=== PATIENT | female | born 1990 | race Two or more races ===

== ENCOUNTER 2017-09-08 16:48 | Emergency (ER) | payer MEDICAID ==
[~2017-09-08] VITALS: Ht 162.6 cm; Wt 54.4 kg
[2017-09-08 17:39] LABS: APPEARANCE,URINE CLOUDY; BILIRUBIN, URINE NEGATIVE (NEGATIVE); COLOR,URINE PALE YELLOW; GLUCOSE, URINE (UA) NEGATIVE (NEGATIVE); KETONES,URINE NEGATIVE (NEGATIVE); LEUKOCYTE ESTERASE ,URINE 1+ (NEGATIVE); NITRITE,URINE POSITIVE (NEGATIVE); PH,URINE 7 (4.5-8.0); PROTEIN,URINE NEGATIVE (NEGATIVE); UROBILINOGEN,URINE NORMAL MG/DL (0.0-1.0)
[2017-09-08] MEDS ORDERED: LORazepam 1mg tab ORAL ONE (17:45)
[2017-09-08 18:01] LABS: BASOPHILS % (AUTO) 0.9 % (0.0-2.0); EOSINOPHILS % (AUTO) 1.8 % (0.0-3.0); HEMATOCRIT 39.7 % (37.0-47.0); HEMOGLOBIN 13.7 G/DL (12.0-16.0); LYMPHOCYTES % (AUTO) 35.5 % (20.0-45.0); MEAN CORPUSCULAR VOLUME 82 FL (80-99); MONOCYTES % (AUTO) 8.1 % (1.0-10.0); NEUTROPHILS % (AUTO) 53.7 % (45.0-75.0); PLATELET COUNT 290 K/UL (150-450); RED BLOOD COUNT 4.86 M/UL (4.20-5.40); RED CELL DISTRIBUTION WIDTH 12.1 % (11.6-14.8); WHITE BLOOD COUNT 11.5 K/UL (4.8-10.8)
[2017-09-08 18:05] LABS: ANION GAP 8 mmol/L (5-15); BLOOD UREA NITROGEN 13 mg/dL (7-18); CALCIUM 9.5 MG/DL (8.5-10.1); CARBON DIOXIDE 29 MMOL/L (21-32); CHLORIDE 100 MMOL/L (98-107); CREATININE 0.7 MG/DL (0.55-1.30); POTASSIUM 3.9 MMOL/L (3.5-5.1); SODIUM 137 MMOL/L (136-145)
[2017-09-08 18:10] LABS: ALANINE AMINOTRANSFERASE 18 U/L (12-78); ALBUMIN 4.2 G/DL (3.4-5.0); ALKALINE PHOSPHATASE 70 U/L (46-116); ASPARTATE AMINO TRANSFERASE 13 U/L (15-37); BILIRUBIN,TOTAL 0.3 MG/DL (0.2-1.0)
[2017-09-08] MEDS ORDERED: Isovue-300 100ml vial INJ PRN (19:00)
[2017-09-08 19:12] VITALS: BP 108/60
[2017-09-08] MEDS ORDERED: NITROFURANTOIN100 M2 ORAL (19:57)
[2017-09-08] MEDS ORDERED: TYLENOL EXTRA500 MG ORAL (19:57)
[2017-09-08 20:14] VITALS: BP 112/67
[2017-09-08 20:15] VITALS: BP 112/67
--- NOTE | 2017-09-08 20:51 | Emergency Room Report ---
History of Present Illness General Chief Complaint: Abdominal Pain Source: Patient Present Illness HPI The patient is a 27 old female presenting for abdominal pain. She states that she has had 3 days of right lower abdominal pain described as a 7 out of 10 sharp sensation. Pain is increased with movement. Does not radiate. She denies other symptoms including nausea, vomiting, fever, chills, back pain, dysuria, hematuria, vaginal discharge, decreased appetite Allergies: Coded Allergies: No Known Allergies (Unverified , 09/08/17) Patient History Past Medical History: see triage record Pertinent Family History: none Last Menstrual Period: Current Reviewed Nursing Documentation: PMH: Agreed; PSxH: Agreed Nursing Documentation-PMH Past Medical History: No Stated History Review of Systems All Other Systems: negative except mentioned in HPI Physical Exam Vital Signs Date Time Temp Pulse Resp B/P (MAP) Pulse Ox O2 Delivery O2 Flow Rate FiO2 09/08/17 17:11 98.0 89 17 99/58 98 Room Air 98.1 Sp02 EP Interpretation: reviewed, normal General Appearance: no apparent distress, alert, GCS 15, non-toxic Head: normocephalic, atraumatic Eyes: bilateral eye normal inspection, bilateral eye PERRL Respiratory: chest non-tender, lungs clear, normal breath sounds, speaking full sentences Cardiovascular #1: regular rate, rhythm, no edema Gastrointestinal: normal bowel sounds, soft, non-distended, no guarding, no rebound, tenderness - RLQ and suprapubic Musculoskeletal: back normal, gait/station normal, normal range of motion, non- tender Neurologic: alert, oriented x3, responsive, motor strength/tone normal, sensory intact, speech normal Skin: normal color, no rash, warm/dry, well hydrated Medical Decision Making PA Attestation Dr. Elkins is my supervising physician. Patient management was discussed with my supervising physician Diagnostic Impression: Primary Impression: UTI (urinary tract infection) Qualified Codes: N30.00 - Acute cystitis without hematuria ER Course The patient is a 27 old female presenting for abdominal pain. Differential diagnoses considered include but not limited to appendicitis, gastroenteritis, , UTI PE: Afebrile. NAD Abd is soft. TTP over the RLQ and suprapubic region. Non distended. Normal BS Other leary exam unremarkable Labs show slight leukocytosis UA consistent with UTI Due to RLQ tenderness with slight leukocytosis, CT abd/pelvis was done primarily to evaluate for appendicitis. CT/Pelvis unremarkable. [facility] for [facility]. ER precautions given Laboratory Tests Test 09/08/17 17:23 09/08/17 17:38 Urine Color Pale yellow Urine Appearance Cloudy Urine pH 7 (4.5-8.0) Urine Specific [place] 1.010 (1.005-1.035) Urine Protein Negative (NEGATIVE) Urine Glucose (UA) Negative (NEGATIVE) Urine Ketones Negative (NEGATIVE) Urine Occult Blood 3+ (NEGATIVE) H Urine Nitrite Positive (NEGATIVE) H Urine Bilirubin Negative (NEGATIVE) Urine Urobilinogen Normal MG/DL (0.0-1.0) Urine Leukocyte Esterase 1+ (NEGATIVE) H Urine RBC 5-10 /HPF (0 - 2) H Urine WBC 10-15 /HPF (0 - 2) H Urine Squamous Epithelial Cells Many /LPF (NONE/OCC) H Urine Bacteria Many /HPF (NONE) H Urine HCG, Qualitative Negative (NEGATIVE) White Blood Count 11.5 K/UL (4.8-10.8) H Red Blood Count 4.86 M/UL (4.20-5.40) Hemoglobin 13.7 G/DL (12.0-16.0) Hematocrit 39.7 % (37.0-47.0) Mean Corpuscular Volume 82 FL (80-99) Mean Corpuscular Hemoglobin 28.2 PG (27.0-31.0) Mean Corpuscular Hemoglobin Concent 34.5 G/DL (32.0-36.0) Red Cell Distribution Width 12.1 % (11.6-14.8) Platelet Count 290 K/UL (150-450) Mean Platelet Volume 7.4 FL (6.5-10.1) Neutrophils (%) (Auto) 53.7 % (45.0-75.0) Lymphocytes (%) (Auto) 35.5 % (20.0-45.0) Monocytes (%) (Auto) 8.1 % (1.0-10.0) Eosinophils (%) (Auto) 1.8 % (0.0-3.0) Basophils (%) (Auto) 0.9 % (0.0-2.0) Prothrombin Time 10.0 SEC (9.30-11.50) Prothrombin Time INR 1.0 (0.9-1.1) PTT 31 SEC (23-33) Sodium Level 137 MMOL/L (136-145) Potassium Level 3.9 MMOL/L (3.5-5.1) Chloride Level 100 MMOL/L (98-107) Carbon Dioxide Level 29 MMOL/L (21-32) Anion Gap 8 mmol/L (5-15) Blood Urea Nitrogen 13 mg/dL (7-18) Creatinine 0.7 MG/DL (0.55-1.30) Estimate Glomerular Filtration Rate > 60 mL/min (>60) Glucose Level 82 MG/DL (74-106) Calcium Level 9.5 MG/DL (8.5-10.1) Total Bilirubin 0.3 MG/DL (0.2-1.0) Aspartate Amino Transferase (AST) 13 U/L (15-37) L Alanine Aminotransferase (ALT) 18 U/L (12-78) Alkaline Phosphatase 70 U/L (46-116) Total Protein 8.6 G/DL (6.4-8.2) H Albumin 4.2 G/DL (3.4-5.0) Globulin 4.4 g/dL Albumin/Globulin Ratio 1.0 (1.0-2.7) Lipase 110 U/L (73-393) Lab Results Impression CBC shows mild leukocytosis. UA consistent with UTI Otherwise unremarkable. CT/MRI/US Diagnostic Results CT/MRI/US Diagnostic Results : Imaging Test Ordered: CT abd/pelvis Impression Appendix not seen. No colitis. Some fluid suggested in Hernandez's pouch. Mild heterogeneity of the R kidney Last Vital Signs Date Time Temp Pulse Resp B/P (MAP) Pulse Ox O2 Delivery O2 Flow Rate FiO2 09/08/17 20:15 98.4 78 20 112/67 99 Room Air 98.4 74 Status: improved Disposition: HOME, SELF-CARE Condition: Improved Scripts Acetaminophen* (TYLENOL EXTRA STRENGTH*) 500 Mg Tablet 500 MG ORAL Q8H PRN for Prn Headache/Temp > 101, #30 TAB 0 Refills Prov: TERZIAN,DEVON P.A. 09/08/17 Nitrofurantoin Monohyd/M-Cryst* (MACROBID 100 MG*) 100 Mg Capsule 100 MG ORAL EVERY 12 HOURS, #14 CAP Prov: TERZIAN,DEVON P.A. 4/29/18 Patient Instructions: Urinary Tract Infection Additional Instructions: I discussed my findings with the patient. All questions and concerns have been answered. Treatment and medication compliance have been addressed. I advised the patient that they need to follow up with PMD in 3-5 days. Return to ED if symptoms worsen, new symptoms arise, or if needed for any reason. Patient verbalized understanding of discharge instructions. DEVON VIGIL Sep 08, 2017 20:51
--- NOTE | 2017-09-09 10:50 | Diagnostic Imaging Report ---
Indication: Right lower quadrant abdominal pain Technique: CT of the abdomen and pelvis utilizing automated exposure control with intravenous contrast. Venous scanning performed. CT dose: Total DLP 520.45 mGycm; CTDI vol 9.94 mGy Comparison: None Findings: Imaged lung bases are clear. Heart size within normal limits. No pericardial effusion. Gallbladder is contracted but otherwise unremarkable. No CT evident pericholecystic inflammatory change. Liver, spleen, adrenal glands and pancreas are unremarkable. There is mild ectasia of the right renal collecting system and possible subtle heterogeneous enhancement. No focal renal mass or fluid collection. No urinary tract stones bilaterally. Uterus and adnexa are grossly unremarkable for CT. There is bladder wall thickening. Evaluation of the gastrointestinal tract is limited due to paucity of intra-abdominal fat and lack of enteric contrast. There is no free intraperitoneal air. There is mild amount free fluid in the pelvis. Appendix not definitively visualized however there are no definite focal inflammatory changes in the right lower quadrant. No evidence of bowel obstruction. No pathologically enlarged lymphadenopathy. Abdominal aorta is normal in caliber. No acute osseous abnormality seen. IMPRESSION: * Evaluation of the gastrointestinal tract is limited due to paucity of intra-abdominal fat and lack of enteric contrast. Appendix is not definitively visualized. No definite focal inflammatory stranding seen in the right lower quadrant. No evidence of bowel obstruction or free intraperitoneal air. * Bladder wall thickening. Mild ectasia of the right renal collecting system with question of subtle heterogeneity of right renal enhancement. No urinary tract stones identified. Correlate with urinalysis to assess for cystitis/pyelonephritis. Additional findings as above. This corresponds with the statrad preliminary report. The CT scanner at [facility] is accredited by the [employer] and the scans are performed using protocols designed to limit radiation exposure to as low as reasonably achievable to attain images of sufficient resolution adequate for diagnostic evaluation.
== END 2017-09-08 20:16 | disposition home or self-care (01) ==
LOC: EMR 19:15
DX: N39.0 Urinary tract infection, site not specified (principal)
CPT/HCPCS: 36415; 74177; 80053; 81003; 81025; 83690; 85025; 85610; 85730; 87086; 87181; 99284; Q9967